=== PATIENT | male | born 1980 | race Caucasian/White ===

== ENCOUNTER → 2023-09-22 16:30 | Outpatient (REF) | payer OTHER, SELFPAY | LOC: RAD 16:30 | PROVIDERS: ATTENDING PHYSICIAN Orthopaedic Surgery; FAMILY PHYSICIAN Internal Medicine | DX: M79.89 Other specified soft tissue disorders (principal) | CPT/HCPCS: 70030 ==

== ENCOUNTER 2024-12-20 14:16 | Emergency (ER) | payer OTHER, SELFPAY ==
[2024-12-20 14:22] VITALS: BP 139/97
[2024-12-20 14:51] LABS: % Basophils 0.5 % (0-2); % Eosinophils 0.3 % (0-6); % Immature Granulocytes 1.3 % (0-0.5); % Lymphocytes 18.7 % (20.5-51.1); % Monocytes 7.7 % (1.7-9.3); % Neutrophils 71.5 % (42.2-75.2); Absolute Immature Granulocytes 0.1 10^3/uL (0-0.05); Absolute Lymphocytes 1.1 10^3/uL (1.2-3.4); Absolute Monocytes 0.5 10^3/uL (0.1-0.6); Absolute Neutrophils 4.4 10^3/uL (1.4-6.5); Hematocrit 41.1 % (39.0-52.0); Hemoglobin 14.2 g/dL (13.0-18.0); Mean Corp Hgb Conc. 34.5 g/dL (33.0-37.0); Mean Corpuscular Hgb 28.5 pg (27.0-31.0); Mean Corpuscular Volume 82.5 fL (80.0-94.0); Nucleated Red Blood Cells % 0 % (-); Platelet Count 292 10^3/uL (130-400); Red Blood Cell Count 4.98 10^6/uL (4.70-6.10); White Blood Cell Count 6.1 10^3/uL (4.8-10.8)
[2024-12-20 15:03] LABS: ALT (SGPT) 26 U/L (0-50); AST (SGOT) 26 U/L (17-59); Albumin 4.7 g/dl (3.5-5.0); Alkaline Phosphatase 46 U/L (38-126); Blood Urea Nitrogen 15 mg/dl (9-20); Calcium 9.5 mg/dl (8.4-10.2); Carbon Dioxide 30 mmol/L (22-30); Chloride 105 mmol/L (98-107); Glucose 123 mg/dl (70-99); Potassium 4.5 mmol/L (3.5-5.1); Sodium 140 mmol/L (135-145); Total Bilirubin 0.6 mg/dl (0.2-1.3); Total Protein 7.2 g/dl (6.3-8.2); eGFR > 60.00
[2024-12-20 15:13] LABS: Troponin I < 0.012 ng/ml
--- NOTE | 2024-12-20 16:49 | ED.GENMED ---
History of Present Illness
General
Chief Complaint: Blood Pressure Problem
Source: patient
Exam Limitations: none
Time Seen by Provider: 12/20/24 16:36
Nursing documentation reviewed up to this point in time: agreed with
History of Present Illness
History of Present Illness:
44-year-old male with a past medical history of hypertension who presents to the emergency department for evaluation of multiple complaints. Patient reports that he started having symptoms on Thursday and they have been constant since that time. He
reports he started having brain fog and dizziness that he describes as his typical symptoms when his blood pressure gets to be high. He notes that over the weekend his blood pressures were in the 160/90 range. He says that he has had occasional
chest discomfort, feels fatigued, dizzy, headaches, neck pains, mild nausea. No vomiting. No abdominal discomfort. No shortness of breath, cough, fever, URI symptoms reported. No swelling or pain in the legs. No focal weakness or numbness. No
vision loss or speech disturbance. He notes that he thought symptoms could be related to anxiety and so he did try Ativan which she had a previous prescription for but this did not help. He was prescribed Lexapro and started this 2 days ago but
has not noticed any change in his symptoms as of yet. He does note that he has aged child away within the next few weeks and has recently been cutting back on his nicotine intake (he currently vapes) trying to stop before the child was born.
Regarding blood pressure issues: He is on amlodipine valsartan, reports that his primary doctor increased dose of amlodipine from 5 mg to 10 mg about 3 to 4 weeks ago.
Past History
Past History
ED Past Medical History: GERD, HTN and Other (Psoriasis)
Review of Systems
Review of Systems
All Other Systems: ROS reviewed and negative except as documented in HPI and ROS
Constitutional: Reports fatigue; Denies fever
EENT: Denies sore throat or runny nose
Respiratory: Denies cough or trouble breathing
Cardiac: Reports chest pain; Denies palpitations
ABD/GI: Reports nausea; Denies abdominal pain, vomiting or diarrhea
: Denies flank pain
Musculoskeletal: Reports neck pain; Denies back pain
Neurological: Reports dizzy and headache; Denies weakness or numbness
Psychiatric: Reports anxiety
Phy Exam
Physical Exam
Physical Exam:
General: Awake, alert, oriented x3; no acute distress
Head: Normocephalic, atraumatic
Eyes: Conjunctiva normal, EOMI, pupils equal round and reactive to light bilaterally
Throat: Airway intact, handling secretions
Neck: Trachea midline, supple without meningismus, full range of motion
Lungs: Clear to auscultation bilaterally, no wheezing, rales, rhonchi
Heart: Regular rate and rhythm, no murmurs, gallops, or rubs
Abd: Soft, non distended, nontender
Neuro: Cranial nerves intact 2 through 12, speech is fluid without dysarthria or aphasia, no limb ataxia, motor and sensory intact in all extremities proximally and distally
Skin: no rash
Extremities: No edema in extremities, equal pulses in all extremities
Scores
Heart Failure Risk
Heart Failure Risk Score: Not Applicable
Heart Score for Chest Pain Patients
STEMI patient?: Not applicable
Withdrawal Assessment of Alcohol
Withdrawal Assessment Completed?: Not applicable
Course
Orders/Labs/Results
Orders:
Orders
12/20/24 14:27
Electrocardiogram (*1) Urgent
Reason for Study: Abdominal Pain
EKG- Treatment ONCE
12/20/24 14:41
Complete Blood Count/With Diff Urgent
Comprehensive Metabolic Panel Urgent
Troponin I Urgent
12/20/24 16:49
CT Head W/o Iv Contrast Urgent
Comment:
Reason For Exam: HTN, headache, dizziness
Troponin I Urgent
Abnormal Lab Results
12/20/24
14:41
Abs Immat Gran (auto) 0.1 H 10^3/uL
(0-0.05)
Absolute Lymphs (auto) 1.1 L 10^3/uL
(1.2-3.4)
Immature Gran % 1.3 H %
(0-0.5)
Lymphocytes % 18.7 L %
(20.5-51.1)
Glucose 123 H mg/dl
(70-99)
12/20/24 14:41
12/20/24 14:41
Vital Signs
Initial and Last Documented VS:
Initial Vital Signs
Temp Pulse Resp BP Pulse Ox
36.6 C 107 20 139/97 98
12/20/24 14:22 12/20/24 14:22 12/20/24 14:22 12/20/24 14:22 12/20/24 14:22
Last Documented Vital Signs
Temp Pulse Resp BP Pulse Ox
36.6 C 74 16 133/82 98
12/20/24 14:22 12/20/24 18:43 12/20/24 18:43 12/20/24 18:43 12/20/24 18:43
MDM/Problems Addressed
Differential Diagnosis Includes:
Hypertension, anxiety, nicotine withdrawal, anemia, electrolyte derangement; stroke considered less likely, ACS considered less likely, dysrhythmia considered less likely
MDM/Problems Addressed:
44-year-old male presents for evaluation of multiple nonspecific symptoms over the past few days associated with hypertension. He is hypertensive with a blood pressure of 139/97 here; had some tachycardia in triage which seems to have improved by
my assessment. Physical exam is as above. EKG shows sinus rhythm no acute ischemia. He had labs sent in triage including a CBC and a CMP which showed no clinically significant abnormalities. He had troponin which was undetectable and with
constant symptoms for a few days a suspicion to rule out acute IA. Check CT head. Monitor closely reassess at the above. Suspect symptoms may be--at least in part--related to recent nicotine cessation.
CT head negative for any acute abnormalities. Vital signs stable on clinical reassessment�blood pressure 133/82. Very low suspicion for emergent pathology at this point, I think he is stable for discharge can follow-up with his primary care
physician as an outpatient regarding his blood pressure. He feels comfortable with this plan. Spoke about return precautions all questions answered.
Chronic conditions affecting care:
Hypertension
*Radiology
Radiology exam reviewed: radiology read reviewed
*Pulse Oximetry
Patient hypoxic: no
*EKG
Interpreted by ED Provider?: Yes
Heart Rate: 100
Rate: normal
Rhythm: sinus
[place]: normal axis
Interval: normal interval
QRS Pattern: normal QRS
Ischemia: no ischemia
*Critical Care Note
Total Time (30-74mins, 75-104mins- exclusive of procedures): Not Applicable
Data Reviewed
Review of Other/Old Records Reveals: Labs and Records
Source: patient and records
ED Attending Note
-
Portions of this chart may have been created with voice recognition software.� Occasional wrong word or��sound alike� substitutions may have occurred due to the inherent limitations of voice recognition software.
Discharge Plan
Departure
Patient Disposition: Home (Routine Discharge)
Date of Disposition: 12/20/24
Time of Disposition: 18:50
Patient with high blood pressure during this ER visit?: Yes
Discharge Problem:
Hypertension, Dizziness
Instructions: High Blood Pressure (DC)
Prescriptions:
No Action
amlodipine 5 MG tablet
5 mg PO DAILY
omeprazole [Prilosec] 10 MG capsule,delayed release(DR/EC)
10 mg PO DAILY
Referrals:
Cricket Elena DO [Family Provider] - Follow up in 5-7 days
Activity Restrictions/Additional Instructions:
Thank you for visiting the Emergency Department at [facility].
1. Please schedule a follow up appointment as directed. Call first thing tomorrow morning to make an appointment.
2. If indicated, please take your medications as instructed and indicated on discharge paperwork.
3. If any of your symptoms do not improve, or persist, or become more severe within 6-12 hours, please return to the emergency department for further care.
4. Please return to the emergency department if you develop a headache, neck pain/stiffness, fever greater than 100.4F, chest pain, shortness of breath, persistent nausea, vomiting, slurred speech, difficulty walking, numbness/tingling, weakness,
signs of infection or any other symptoms that are worrisome to you.
Please call [phone] if you have any questions.
Interventions
Interventions:
*Risk Screen - Suicide Last Done: 12/20/24 14:22
*General Assessment Last Done: 12/20/24 14:22
*Neglect/Abuse Screening Last Done: 12/20/24 14:22
ED- Cardiac Assessment Last Done: 12/20/24 16:50
ED- Neurological Assessment Last Done: 12/20/24 16:50
ED- Pulmonary Assessment Last Done: 12/20/24 16:50
Discharge Date and Time
Print Language: ESTONIAN
[2024-12-20 16:50] VITALS: BP 131/85
[2024-12-20 18:43] VITALS: BP 133/82
== END 2024-12-20 19:05 | disposition home or self-care (01) ==
LOC: EMR 14:16
PROVIDERS: Emergency Medicine; EMERGENCY PHYSICIAN Emergency Medicine; FAMILY PHYSICIAN Internal Medicine
DX: I10 Essential (primary) hypertension (principal); R42 Dizziness and giddiness; K21.9 Gastro-esophageal reflux disease without esophagitis; L40.9 Psoriasis, unspecified
CPT/HCPCS: 99284; 70450; 80053; 84484; 85025; 93005

== ENCOUNTER → 2025-02-06 13:49 | Outpatient (REF) | payer OTHER, SELFPAY | LOC: RCS 13:49 | PROVIDERS: ATTENDING PHYSICIAN Nuclear Medicine Nuclear Cardiology; FAMILY PHYSICIAN Internal Medicine | DX: R07.89 Other chest pain (principal) | CPT/HCPCS: 93306 ==